=== PATIENT | female | born 1975 | race Caucasian/White ===

== ENCOUNTER → 2016-09-02 17:49 | Outpatient (CLI) | payer BC ==
[2012-09-04 13:07] VITALS: BMI 25.9
== END | disposition home or self-care (01) ==
LOC: D.MAMMO 10:00
DX: N63 Unspecified lump in breast (principal)

== ENCOUNTER → 2016-09-23 17:12 | Outpatient (CLI) | payer BC ==
[2012-09-04 13:07] VITALS: BMI 25.9
== END | disposition home or self-care (01) ==
LOC: D.US 09-16 08:30 → D.MAMMO 09-16 08:30 → D.US 09:30
DX: N63 Unspecified lump in breast (principal)

== ENCOUNTER → 2016-09-25 08:16 | Outpatient (CLI) | payer BC ==
[2012-09-04 13:07] VITALS: BMI 25.9
== END | disposition home or self-care (01) ==
LOC: D.US 08:16
DX: N63 Unspecified lump in breast (principal)

== ENCOUNTER → 2016-10-24 13:59 | Outpatient (CLI) | payer BC ==
[2012-09-04 13:07] VITALS: BMI 25.9
== END | disposition home or self-care (01) ==
LOC: D.US 13:59
DX: N64.4 Mastodynia (principal)

== ENCOUNTER → 2016-11-26 07:36 | Outpatient (CLI) | payer BC ==
[2012-09-04 13:07] VITALS: BMI 25.9
== END | disposition home or self-care (01) ==
LOC: D.CT 07:36
DX: R07.81 Pleurodynia (principal)